=== PATIENT | male | born 1995 | race Caucasian/White ===

== ENCOUNTER 2018-09-16 20:33 | Emergency (ER) | payer SELFPAY ==
[~2018-09-16] VITALS: Ht 175.3 cm; Wt 106.6 kg
[2018-09-16 20:40] VITALS: Ht 175.3 cm; Wt 106.6 kg
[2018-09-16 22:40] VITALS: BP 122/66
== END 2018-09-16 22:40 | disposition home or self-care (01) ==
LOC: ED 20:33
DX: S93.04XA Dislocation of right ankle joint, initial encounter (principal); X50.1XXA Overexertion from prolonged static or awkward postures, initial encounter; Y93.51 Activity, roller skating (inline) and skateboarding; Y92.89 Other specified places as the place of occurrence of the external cause; Y99.8 Other external cause status
CPT/HCPCS: J1885; J2405; J3010; Q0092